=== PATIENT | male | born 1975 | race African-American/Black ===

== ENCOUNTER 2017-04-04 00:21 | Emergency (ER) | payer OTHER ==
[~2017-04-04] VITALS: Ht 175.3 cm; Wt 78.7 kg
[~2017-04-04 00:21] MED LIST: AMOXICILLIN500 MG PO; BACTRIM,SEPT1 TABLET PO; BENTYL10 MG PO; CALLUS REMOVER1 EACH TP; COUMADIN,JANTO7.5 MG PO; DEPRESSION MED; ESCITALOPRAM OX10 MG PO; HYDROCODON-ACE1 EAC7 PO; KEFLEX500 MG PO; KEPPRA500 MG PO; METHADONE HCL40 MG PO; METHADONE10 MG PO; METHADONE10 MG/1 M1 PO; METHADONE5 MG PO; MOTRIN800 MG PO; MUCINEX600 MG PO; MYCELEX10 MG PO; NOHOMEMEDS; PRILOSEC OTC20 MG PO; PROMETHAZINE HC25 M1 PO; PROZAC20 MG PO; QUETIAPINE FUMA50 MG PO; STOMACH RELIEF262 MG PO; TRAMADOL HCL50 MG PO; TYLENOL WITH C1 EACH PO; ULTRAM50 MG PO; ZESTRIL10 MG PO; ZOFRAN8 MG PO
[2017-04-04] MEDS ORDERED: AMOXICILLIN500 MG PO (01:39)
[2017-04-04 01:49] VITALS: BP 132/77
== END 2017-04-04 01:50 | disposition home or self-care (01) ==
LOC: EME 00:21
DX: K04.7 Periapical abscess without sinus (principal); R05 Cough; B19.20 Unspecified viral hepatitis C without hepatic coma; K21.9 Gastro-esophageal reflux disease without esophagitis; I10 Essential (primary) hypertension; F32.9 Major depressive disorder, single episode, unspecified; F17.200 Nicotine dependence, unspecified, uncomplicated
CPT/HCPCS: 99281; 99284

== ENCOUNTER 2017-08-03 23:52 | Emergency (ER) | payer OTHER ==
[~2017-08-03] VITALS: Ht 175.3 cm; Wt 53.6 kg
[2017-08-04 01:18] LABS: HEMATOCRIT 44.7 % (38.0-50.0); HEMOGLOBIN 15.1 G/DL (12.5-16.6); MCH 28.7 PG (29.0-34.0); MCHC 33.8 G/DL (30.0-36.0); PLATELET COUNT 242 K/uL (156-360); RBC DIS.WIDTH-CV 12.9 % (11.8-14.6); RED BLOOD COUNT 5.26 M/uL (4.00-5.50); WHITE BLOOD COUNT 7.2 K/uL (4.1-10.2)
[2017-08-04 01:27] LABS: ALBUMIN 4.3 g/dL (3.2-4.8); CHLORIDE 106 mEq/L (99-109); POTASSIUM 3.9 mEq/L (3.7-5.4); SODIUM 140 mEq/L (136-147)
[2017-08-04 01:30] LABS: GLUCOSE 124 mg/dL (70-99); TOTAL PROTEIN 8.8 g/dL (6.4-8.3)
[2017-08-04 01:32] LABS: TOTAL BILIRUBIN 1.5 mg/dL (0.0-1.0)
[2017-08-04 01:33] LABS: SERUM ETHYL ALCOHOL < 10 mg/dL
[2017-08-04 01:34] LABS: ALKALINE PHOSPHATASE 112 IU/L (3-129); CREATININE 0.9 mg/dL (0.6-1.3); GFR ESTIMATE (CALCULATED) > 59 mL/min/ (58.99-99999)
[2017-08-04 01:35] LABS: AST (GOT) 26 IU/L (2-34); UREA NITROGEN (BUN) 12 mg/dL (9-23)
[2017-08-04 01:37] LABS: ACETAMINOPHEN (TYLENOL) < 10 mcg/mL (10-30); ALT (GPT) 20 IU/L (3-49); SALICYLATE < 5.0 MG/DL (15-30)
[2017-08-04 01:43] LABS: APPEARANCE CLEAR ((CLEAR)); BILIRUBIN NEGATIVE; BLOOD NEGATIVE; COLOR AMBER ((YELLOW)); GLUCOSE (STRIP) NEGATIVE; KETONES 20; LEUKOCYTES NEGATIVE; NITRITE NEGATIVE; PROTEIN (STRIP) 100; SPECIFIC GRAVITY 1.029 (1.000-1.030)
[2017-08-04 01:49] LABS: BACTERIA RARE /HPF; EPITHELIAL CELLS NONE SEEN /HPF; MUCUS 1+ /LPF; RED BLOOD CELLS 0-5 /HPF (0-5); WHITE BLOOD CELLS 0-5 /HPF (0-5)
[2017-08-04 01:53] LABS: AMPHETAMINE NEGATIVE (500 ng/mL); BARBITURATES NEGATIVE (200 ng/mL); BENZODIAZEPINES NEGATIVE (150 ng/mL); BUPRENORPHINE NEGATIVE (10 ng/mL); COCAINE PRESUMPTIVE POSITIVE (150 ng/mL); METHADONE NEGATIVE (200 ng/mL); METHAMPHETAMINE NEGATIVE (500 ng/mL); OPIATES (MORPHINE) PRESUMPTIVE POSITIVE (100 ng/mL); OXYCODONE NEGATIVE (100 ng/mL); PHENCYCLIDINE NEGATIVE (25 ng/mL); PROPOXYPHENE NEGATIVE (300 ng/mL); THC CANNABINOIDS NEGATIVE (50 ng/mL); TRICYCLIC ANTIDEPRESSANTS NEGATIVE (300 ng/mL)
[2017-08-04] MEDS ORDERED: LIBRIUM25 MG PO (03:46)
[2017-08-04] MEDS ORDERED: PROMETHAZINE HC25 M1 PO (03:46)
[2017-08-04] MEDS ORDERED: CLONIDINE HCL0.1 MG PO (03:46)
[2017-08-04 03:56] VITALS: BP 166/99
== END 2017-08-04 04:18 | disposition home or self-care (01) ==
LOC: EME → EDBD 23:52 → EME 08-04 04:18
PROVIDERS: Emergency Medicine
DX: F10.239 Alcohol dependence with withdrawal, unspecified (principal); F11.10 Opioid abuse, uncomplicated; R11.2 Nausea with vomiting, unspecified; R19.7 Diarrhea, unspecified; Y90.0 Blood alcohol level of less than 20 mg/100 ml; I48.91 Unspecified atrial fibrillation; I10 Essential (primary) hypertension; B19.20 Unspecified viral hepatitis C without hepatic coma; F32.9 Major depressive disorder, single episode, unspecified; K21.9 Gastro-esophageal reflux disease without esophagitis; F17.200 Nicotine dependence, unspecified, uncomplicated; Z86.69 Personal history of other diseases of the nervous system and sense organs
CPT/HCPCS: 71045; 80053; 81003; 82140; 84999; 85027; 99281; 99285; G0480; J2550

== ENCOUNTER 2017-08-11 00:21 | Inpatient (IN) | payer OTHER ==
[~2017-08-11] VITALS: Ht 175.3 cm; Wt 78.2 kg
[~2017-08-11 00:21] MED LIST changes: +CLONIDINE HCL0.1 MG PO; +LIBRIUM25 MG PO
[2017-08-11 02:28] LABS: HEMATOCRIT 35.9 % (38.0-50.0); MCHC 33.7 G/DL (30.0-36.0); MCV 86.1 FL (86-99); PLATELET COUNT 187 K/uL (156-360); RBC DIS.WIDTH-CV 12.8 % (11.8-14.6); RBC DIS.WIDTH-SD 39.9 % (39-53); WHITE BLOOD COUNT 9.3 K/uL (4.1-10.2)
[2017-08-11 02:29] LABS: HEMOGLOBIN 12.1 G/DL (12.5-16.6); RED BLOOD COUNT 4.17 M/uL (4.00-5.50)
[2017-08-11 02:35] LABS: ALBUMIN 3.6 g/dL (3.2-4.8); CHLORIDE 100 mEq/L (99-109); POTASSIUM 3.9 mEq/L (3.7-5.4)
[2017-08-11 02:36] LABS: SODIUM 133 mEq/L (136-147)
[2017-08-11 02:38] LABS: GLUCOSE 128 mg/dL (70-99)
[2017-08-11 02:40] LABS: TOTAL BILIRUBIN 0.8 mg/dL (0.0-1.0)
[2017-08-11 02:41] LABS: ALKALINE PHOSPHATASE 89 IU/L (3-129); CREATININE 0.8 mg/dL (0.6-1.3); GFR ESTIMATE (CALCULATED) > 59 mL/min/ (58.99-99999)
[2017-08-11 02:42] LABS: UREA NITROGEN (BUN) 10 mg/dL (9-23)
[2017-08-11 02:43] LABS: AST (GOT) 25 IU/L (2-34)
[2017-08-11 02:44] LABS: ALT (GPT) 14 IU/L (3-49)
[2017-08-11] MEDS ORDERED: PROMETHAZINE HC25 M1 PO (08:28)
[2017-08-11] MEDS ORDERED: CHLORDIAZEPOXID25 MG PO (08:29)
[2017-08-11] MEDS ORDERED: CLONIDINE HCL0.1 MG PO (08:29)
[2017-08-11 10:01] VITALS: BP 137/73
[2017-08-11 16:28] VITALS: BP 148/68
[2017-08-11 19:28] VITALS: BP 142/83
[2017-08-11 23:28] VITALS: BP 144/98
[2017-08-12] VITALS (7 sets, daily range): BP systolic 122–175; BP diastolic 57–88
[2017-08-12 07:20] LABS: CHLORIDE 106 MEQ/L (99-109); CREATININE 0.9 MG/DL (0.6-1.3); GFR ESTIMATE (CALCULATED) > 59 mL/min/ (58.99-99999); POTASSIUM 4.1 MEQ/L (3.7-5.4); SODIUM 139 MEQ/L (136-147); UREA NITROGEN (BUN) 12 mg/dL (9-23)
[2017-08-12 07:22] LABS: GLUCOSE 90 mg/dL (70-99)
[2017-08-13 07:16] LABS: HEMATOCRIT 34.6 % (38.0-50.0); HEMOGLOBIN 11.5 G/DL (12.5-16.6); MCH 28.6 PG (29.0-34.0); MCHC 33.2 G/DL (30.0-36.0); MCV 86.1 FL (86-99); PLATELET COUNT 153 K/uL (156-360); RBC DIS.WIDTH-CV 12.7 % (11.8-14.6); RBC DIS.WIDTH-SD 40.1 % (39-53); RED BLOOD COUNT 4.02 M/uL (4.00-5.50); WHITE BLOOD COUNT 5.1 K/uL (4.1-10.2)
[2017-08-13 07:42] LABS: CHLORIDE 107 MEQ/L (99-109); CREATININE 0.7 MG/DL (0.6-1.3); GFR ESTIMATE (CALCULATED) > 59 mL/min/ (58.99-99999); POTASSIUM 3.7 MEQ/L (3.7-5.4); SODIUM 137 MEQ/L (136-147); UREA NITROGEN (BUN) 8 mg/dL (9-23)
[2017-08-13 07:45] LABS: GLUCOSE 118 mg/dL (70-99)
[2017-08-13 09:23] VITALS: BP 139/90
== END 2017-08-13 15:45 | disposition left against medical advice (07) | DRG 580 ==
LOC: EME 00:21 → 3EAST 05:29 → EDOF 05:29 → ENRESERV 06:11 → 3EAST 09:42
PROVIDERS: Internal Medicine; Physician Assistant
PROC: 0J9H0ZZ Drainage of Left Lower Arm Subcutaneous Tissue and Fascia, Open Approach (ICD-10-PCS; principal; 2017-08-11)
DX: L02.414 Cutaneous abscess of left upper limb (principal); L03.114 Cellulitis of left upper limb; R78.81 Bacteremia; B95.62 Methicillin resistant Staphylococcus aureus infection as the cause of diseases classified elsewhere; F11.10 Opioid abuse, uncomplicated; F14.10 Cocaine abuse, uncomplicated; I48.92 Unspecified atrial flutter; K21.9 Gastro-esophageal reflux disease without esophagitis; F31.9 Bipolar disorder, unspecified; F17.210 Nicotine dependence, cigarettes, uncomplicated; F12.10 Cannabis abuse, uncomplicated; B18.2 Chronic viral hepatitis C
CPT/HCPCS: 73201; 80048; 80053; 80202; 83605; 85027; 87040; 87070; 87075; 87077; 87147; 87186; 87205; 87801; 93306; 99281; 99285; J0295; J0696; J1644; J1885; J2060; J2405; J3010; J3370; J7030; J7050